=== PATIENT | female | born 1970 | race Caucasian/White ===

== ENCOUNTER 2021-08-29 08:18 | Emergency (ER) | payer SELFPAY ==
--- NOTE | 2021-08-29 08:46 | ED_ITS ---
HPI - CPR General Stated Complaint: cardiac arrest Time Seen by Provider: 08/29/21 08:32 Source: patient, family and EMS Mode of arrival: EMS Limitations: other (ongoing CPR) History of Present Illness MD complaint: other (was off this, AM c/o chest and bilateral arm pain arrested in front of ) Onset (ago): minute(s) (25 minutes prior to arrival) Timing confirmed by: spouse Place: home Bystander CPR performed: Yes AED applied by bystander/silk spreader: No Shock advised: No Initial findings in the field: unresponsive, no respirations and VTACH/VFIB (EMS notes sustained V tach in the field) ROSC in the field: No Associated injuries: No Associated symptoms: chest pain (told she had chest pain going down both arms today) and other (patient vomited as well) Treatments prior to arrival: other airway device (naresh airway sats around 70s), chest compressions, defibrillated shocks # (5), epinephrine mgs # (5) and amiodarone (300/150) Related Data Allergies Allergy/AdvReac Type Severity Reaction Status Date / Time Unable to Assess Allergy Verified 08/29/21 08:33 Review of Systems Review of Systems: ROS unable to be obtained due to being unresponsive [facility] Past Medical History Attestation statement: The following information was validated with the patient. Medical History No known health problems Social History Social History (Updated 08/29/21 @ 08:48 by Kiara Ulrich DO) Frequency of e-Cigarette/Vaping Use: daily Use of substances other than those prescribed or required for medical reasons: No Advance Directives: No Advance Directives Information Provided: No Physical Exam Vital Signs: Appearance: ongoing CPR no response, severe distress Eyes: Pupils fixed and dilated 3mm ENT: Pharynx no gag reflex, mucous noted Neck: Normal inspection. CVS: no spontaneous pulses, hands and feet purple and cold to the touch Respiratory: no spontaneous respirations, rhonchi heard with bagging sats only 79% on monitor with decreased breath sounds noted throughout Abdomen: Soft and but mild distention Skin: Skin cold to touch and pale Extremities: No lower extremity edema. cold and white on hands and feet, IO R shoulder Neuro: no response to external stimuli, fixed and dilated pupils Course Course Course Narrative: sats on naresh airway 79% removed naresh without issue and intubated for better oxygenation downtime from start over 30 minutes with multiple rounds of epi prehospital and in ED, defibrillated prehospital and given amio 300/150, remains PEA on monitor, cardiac standstill on US - time of 828am notified ME called - Jacob trevor declined Dr. Corrigan [id number] 915am MDM - Cardiac Arrest/CPR MDM Narrative Medical decision making narrative: 51 yo female with no PMH hx of vaping c/o chest pain down both arms today, seemed off and vomited, EMS called initially for seizure - prehospital CPR started, EMS noted sustained V tach multiple rounds of epi, defib in ED 2 round of epi, cardiac standstill on US after 30 + minutes of CPR without ROSC or movement on US resuscitative efforts were stopped at 828am. No signs of trauma or concerns for overdose, will notify ME and next of kin. Lab Data Labs: Lab Results 08/29/21 Range/Units 08:35 COVID-19 (ANDRES) Negative (Negative) COVID-19 Clin Com See Note Procedures Procedure Narrative Procedure Narrative: 825 cardiac standstill 828 cardiac standstill no effusion noted, no wall motion Intubation Time out performed: No sedative: none Laryngoscope: Huggins ET Tube Size: 7.5 ET Tube Uncuffed: No Tube Secured Depth (cm): 24 Tube Secured Location: lips Tube Placement Confirmation: visualized tube passing through cords, equal breath sounds bilaterally, no breath sounds over epigastrium and confirmation by c apnometry Patient Tolerated Procedure: well and no complications Intubation Complications: none Critical Care Time Critical Care Time Critical Care Time: Yes Total Critical Care Time: 35 Attestation: CPR< familiy discussion, calls to ME I attest to this time spent taking care of the patient Discharge Plan Discharge Clinical Impression: Cardiac arrest Patient Disposition: Discharge Date/Time: 08/29/21 10:44 Date/Time: 08/29/21 08:28
[2021-08-29 09:03] LABS: COVID-19 Test Negative (Negative)
--- NOTE | 2021-08-29 09:39 | PC.NURSE ---
post mortum care currently. pt's , gene can be reached at [phone], [id number] is justin [phone]
[2021-08-31 08:20] LABS: Glucose, Whole Blood 145 mg/dL (60-115)
== END 2021-08-29 10:44 | disposition expired ==
LOC: HO.ED 09:22
PROVIDERS: Emergency Provider Emergency Medicine
DX: I46.9 Cardiac arrest, cause unspecified (principal); Z20.822 Contact with and (suspected) exposure to COVID-19
CPT/HCPCS: 31500; 36415; 82947; 87635; 96374; 96375; 99281; 99291; J0171